=== PATIENT | female | born 1990 | race Caucasian/White ===

== ENCOUNTER 2019-10-31 12:23 | Emergency (ER) | payer MEDICAID ==
[~2019-10-31] VITALS: Ht 170.2 cm; Wt 97.5 kg
[2019-10-31 12:31] VITALS: BP 133/76
[2019-10-31] MEDS ORDERED: BACITRACIN OINT 500 UNITS/GM PKT TP ONE (13:10)
--- NOTE | 2019-10-31 13:11 | NUR ---
DR HOWELL EVALUATING PT AT BEDSIDE
--- NOTE | 2019-10-31 13:24 | NUR ---
Patient discharged with v/s stable. Written and verbal after care instructions given and explained. Patient alert, oriented and verbalized understanding of instructions. Ambulatory with steady gait. All questions addressed prior to discharge. ID band removed. Patient advised to follow up with PMD. Rx of BACITRACIN given. Patient educated on indication of medication including possible reaction and side effects. PT educated to wash laceration with soap and water twice daily and reapply Bacitracin ointment and re-wrap. Follow-up with PCP in 2-3 days for wound re-check. Opportunity to ask questions provided and answered.
[2019-10-31 13:25] VITALS: BP 133/76
== END 2019-10-31 13:24 | disposition home or self-care (01) ==
LOC: MED 12:23
DX: S61.012A Laceration without foreign body of left thumb without damage to nail, initial encounter (principal); Z48.00 Encounter for change or removal of nonsurgical wound dressing; W26.0XXA Contact with knife, initial encounter; Y93.89 Activity, other specified; Y92.89 Other specified places as the place of occurrence of the external cause; Y99.8 Other external cause status
CPT/HCPCS: 99282